=== PATIENT | female | born 1980 | race African-American/Black ===

== ENCOUNTER → 2016-08-21 | Outpatient (CLI) | payer OTHER ==
[~2016-08-21] MED LIST: FERR1TAB23; LBT100 PO; MTR600X PO; OXYC5TAB PO; PRENTAB26 PO
== END | disposition home or self-care (01) ==
LOC: C.PAPS 10:22
PROVIDERS: ATTEND Obstetrics & Gynecology
DX: Z39.2 Encounter for routine postpartum follow-up (principal)

== ENCOUNTER 2016-10-13 13:32 | Emergency (ER) | payer OTHER ==
[~2016-10-13] VITALS: Ht 162.6 cm; Wt 101.2 kg
[2016-10-13 13:37] VITALS: TEMP 37.2; Ht 162.6 cm; Wt 101.2 kg
[2016-10-13] MEDS ORDERED: SODIUM CHLORIDE 0.9% 1000ML 1,000 ML IV STA (13:46)
--- NOTE | 2016-10-13 13:53 | EMERGENCY ROOM VISIT NOTE ---
History Report prepared by Erika: Virginie López Under the Supervision of: Dr. Maico Vasquez M.D. First contact with patient: 13:43 Chief Complaint: CHEST PAIN Stated Complaint: CHEST PAIN History of Present Illness The patient is a 35 year old female who presents to the Emergency Room with complaints of persistent midsternal chest pain that began 2 days ago. The pain was worse yesterday than it is today. Her current discomfort is a 3/10 in severity. She was seen by her PCP due to her symptoms and had lab work. Her d- dimer was elevated at that time. She denies any shortness of breath. The patient gave 3 months ago. She states that she has had reflux only once or twice. The patient's sister has a history of blood clots. Denies rash, recent falls or injuries, or other complaints. Source of History: patient Onset: 2 days ago Position: chest (sternal) Symptom Intensity: 3/10 Timing: other (persistent) Associated Symptoms: No SOB, No rash Review of Systems See HPI for pertinent positives & negatives. A total of 10 systems reviewed and were otherwise negative. Past Medical & Surgical Medical Problems: (1) Abdominal pain during in third trimester (2) Blunt trauma of abdominal wall (3) Ectopic (4) Ovarian cyst (5) Partial abruption (6) PID (pelvic inflammatory disease) (7) Pre-eclampsia (8) with 38 completed weeks gestation (9) Severe pre-eclampsia (10) Supervision of high risk in third trimester Surgical Problems: (1) 27 weeks gestation of (2) Previous section Family History Diabetes mellitus Heart disease Hypertension Social History Smoking Status: Never Smoker Marital Status: Housing Status: lives with family Current/Historical Medications Scheduled PRN Ibuprofen (Ibuprofen), 600 MG PO Q4H PRN for Pain, CAZARES, Cramping, or Fever Miscellaneous Medications Ferrous Sulfate (Iron) Allergies Coded Allergies: Metronidazole (Verified Allergy, Mild, GI SYMPTOMS, 10/13/16) Physical Exam Vital Signs Date Time Temp Pulse Resp B/P Pulse Ox O2 Delivery O2 Flow Rate FiO2 10/13/16 14:52 74 18 128/81 96 Room Air 10/13/16 13:37 37.2 86 18 135/89 96 Room Air Physical Exam GENERAL: Patient is well appearing and in no acute distress. HEENT: No acute trauma, normocephalic atraumatic, mucous membranes moist, no nasal congestion, no scleral icterus. NECK: No stridor, no adenopathy, no meningismus, trachea is midline. LUNGS: No dyspnea. Clear to auscultation and equal bilaterally. No wheeze, no rhonchi. HEART: Regular rate and rhythm. No murmurs, rubs, gallops appreciated. CHEST: Tenderness to palpation over sternum. ABDOMEN: Soft, nontender, bowel sounds positive, no masses appreciated, no peritonitis. BACK: No midline tenderness, no CVA tenderness EXTREMITIES: Normal motion all extremities, no cyanosis, no edema. NEUROLOGIC: Alert and oriented, no acute motor or sensory deficits, no focal weakness, cranial nerves grossly intact. SKIN: No rash, no jaundice, no diaphoresis. Medical Decision & Procedures ER Provider Diagnostic Interpretation: Radiology results and stated below per my review and radiologist interpretation: CHEST CTA for PULMONARY ARTERIES CT DOSE: 506.03 mGy.cm HISTORY: Chest pain dyspnea TECHNIQUE: Multiaxial CT images of the chest were performed following the intravenous administration of contrast to evaluate the pulmonary arteries. Maximal intensity projection images were also obtained. COMPARISON STUDY: None. FINDINGS: There is a normal caliber thoracic aorta with no evidence for dissection. There is no evidence for pulmonary embolus. No pleural effusions. No pneumothorax. The liver and spleen are unremarkable. No mediastinal or hilar lymphadenopathy. The central airways are patent. The lungs are clear. IMPRESSION: No evidence for pulmonary embolus. The lungs are clear. Electronically signed by: Lisandro Sanders M.D. 10/13/2016 2:44 PM Dictated Date/Time: 10/13/2016 2:41 PM Laboratory Results 10/13/16 13:55 10/13/16 13:55 Test 10/13/16 13:55 10/13/16 14:02 Red Blood Count 5.09 M/uL (4.2-5.4) Mean Corpuscular Volume 77.2 fL (80-100) Mean Corpuscular Hemoglobin 25.7 pg (25-34) Mean Corpuscular Hemoglobin Concent 33.3 g/dl (32-36) RDW Standard Deviation 44.1 fL (36.4-46.3) RDW Coefficient of Variation 15.6 % (11.5-14.5) Mean Platelet Volume 9.9 fL (7.4-10.4) Est Creatinine Clear Calc Drug Dose 117.3 ml/min Estimated GFR () 116.1 Estimated GFR (Non- 100.2 BUN/Creatinine Ratio 14.6 (10-20) Calcium Level 9.3 mg/dl (8.5-10.1) Troponin I < 0.015 ng/ml (0-0.045) Bedside Hemoglobin 13.6 g/dl (12.0-16.0) Bedside Hematocrit 40 % (37-47) Bedside Sodium 140 mEq/L (135-144) Bedside Potassium 4.0 mEq/L (3.3-5.0) Bedside Chloride 104 mEq/L (101-112) Bedside Total CO2 25 mEq/l (24-31) Anion Gap 16.0 mmol/L (16-25) Bedside Blood Urea Nitrogen 11 mg/dl (7-18) Bedside Creatinine 0.7 mg/dl (0.6-1.3) Bedside Glucose (other) 90 mg/dl (70-99) Bedside Ionized Calcium (Carlos A) 1.23 mmol/l (1.12-1.32) Laboratory results as reviewed by me. Medications Administered Medications (Trade) Dose Ordered Sig/Law Route Start Time Stop Time Status Last Admin Dose Admin Sodium Chloride (Nss 1000ml) 1,000 ml @ 999 mls/hr Q1H1M STAT IV 10/13/16 13:46 10/13/16 14:46 DC 10/13/16 14:08 999 MLS/HR ECG Indication: chest pain Rate (beats per minute): 77 Rhythm: normal sinus Findings: no acute ischemic change, no ectopy ED Course 1344: The patient was evaluated in room A10. A complete history and physical exam was performed. 1346: Ordered NSS 1000 ml @ 999 mls/hr IV. 1449: Reevaluated the patient. She was feeling better. Discussed results and discharge instructions: She verbalized understanding and agreement. The patient is ready for discharge. Medical Decision Differential: Cardiac Ischemia (STEMI, NSTEMI, Unstable Angina, etc), Aortic Dissection, Arrhythmia, Pulmonary Embolism, Pneumonia, Pneumothorax, MSK, Infectious, Pericarditis/Myocarditis, Esophageal Rupture, Gastrointestinal, amongst other pathologies entertained. 35 yr old female with clearly reproducible sternal chest pain, worse with palpation that has improved since yesterday. Recent positive Ddimer and sent to ED for CT PE chest. With chest pain, elevated dimer and fam history of DVT agree with CT PE study. Fortunately CT negative for acute findings. Labs normal. No evidence ACS. Breathing comfortably and in no distress. No abdominal pain. Suspect costochondritis. Impression Primary Impression: Mid sternal chest pain Scribe Attestation The scribe's documentation has been prepared under my direction and personally reviewed by me in its entirety. I confirm that the note above accurately reflects all work, treatment, procedures, and medical decision making performed by me. Departure Information Dispostion Home / Self-Care Referrals No Doctor, Assigned (PCP) Patient Instructions ED Chest Pain Atypical Unkn Cause, My [facility]
[2016-10-13] MEDS ORDERED: OPTIRAY 320 IV PRN (14:00)
[2016-10-13 14:04] LABS: HEMATOCRIT 39.3 % (37-47); MEAN CELL VOLUME 77.2 fL (80-100); MEAN CORPUSCULAR HEMOGLOBIN 25.7 pg (25-34); MEAN CORPUSCULAR HGB CONC 33.3 g/dl (32-36); MEAN PLATELET VOLUME 9.9 fL (7.4-10.4); PLATELET COUNT 293 K/uL (130-400); RED BLOOD COUNT 5.09 M/uL (4.2-5.4)
[2016-10-13 14:17] LABS: ISTAT CREATININE 0.7 mg/dl (0.6-1.3); ISTAT HEMOGLOBIN 13.6 g/dl (12.0-16.0); ISTAT IONIZED CALCIUM 1.23 mmol/l (1.12-1.32)
[2016-10-13 14:21] LABS: BLOOD UREA NITROGEN 11 mg/dl (7-18); BUN/CREATININE RATIO 14.6 (10-20); CALCIUM 9.3 mg/dl (8.5-10.1); CARBON DIOXIDE 27 mmol/L (21-32); CHLORIDE 106 mmol/L (98-107); CREATININE 0.76 mg/dl (0.60-1.20); GLUCOSE 86 mg/dl (70-99); POTASSIUM 3.9 mmol/L (3.5-5.1); SODIUM 140 mmol/L (136-145)
--- NOTE | 2016-10-13 14:45 | DIAGNOSTIC IMAGING REPORT ---
CHEST CTA for PULMONARY ARTERIES CT DOSE: 506.03 mGy.cm HISTORY: Chest pain dyspnea TECHNIQUE: Multiaxial CT images of the chest were performed following the intravenous administration of contrast to evaluate the pulmonary arteries. Maximal intensity projection images were also obtained. COMPARISON STUDY: None. FINDINGS: There is a normal caliber thoracic aorta with no evidence for dissection. There is no evidence for pulmonary embolus. No pleural effusions. No pneumothorax. The liver and spleen are unremarkable. No mediastinal or hilar lymphadenopathy. The central airways are patent. The lungs are clear. IMPRESSION: No evidence for pulmonary embolus. The lungs are clear. Electronically signed by: Lisandro Sanders M.D. 10/13/2016 2:44 PM Dictated Date/Time: 10/13/2016 2:41 PM
[2016-10-13 14:52] VITALS: BP 128/81; PULSE 74; O2SAT 96
== END 2016-10-13 14:59 | disposition home or self-care (01) ==
LOC: C.EDB 13:34 → C.EDA 14:59
DX: R07.89 Other chest pain (principal)